=== PATIENT | male | born 1945 | race Caucasian/White ===

== ENCOUNTER 2020-06-05 12:04 | Emergency (ER) | payer MEDICARE, SELFPAY ==
[2020-06-05 12:14] VITALS: BP 142/82; PULSE 64; RESP 16; TEMP 36.7; O2SAT 97
--- NOTE | 2020-06-05 12:33 | ED.BACK ---
HPI - Back Pain/Injury General Chief Complaint: Back Pain/Injury Stated Complaint: pain in lower abdomin and back Time Seen by Provider: 06/05/20 12:30 Source: patient and RN notes reviewed Mode of arrival: ambulatory Limitations: no limitations History of Present Illness HPI Narrative: I did not fully evaluate this patient. After introducing myself patient states he was not previously aware that our facility was an [place] facility and that he would like leave and go to an Urgent Care in [place] that is associated with his PCP, who can order some outpatient back xrays for him for his back complaint. I was not able to complete in HPI. I was not able to examine this patient. He ambulated out of the building with is cane. Related Data Home Medications Medication Instructions Recorded Confirmed ilcisrjz-eyq-ox-acetaminophen tablet PO 06/05/20 lidocaine patch TOPICAL 06/05/20 Allergies Allergy/AdvReac Type Severity Reaction Status Date / Time No Known Allergies Allergy Verified 06/05/20 12:31 Course Vital Signs Vital signs: Vital Signs Temperature 98.1 F 06/05/20 12:14 Pulse Rate 64 06/05/20 12:14 Respiratory Rate 16 06/05/20 12:14 Blood Pressure 142/82 H 06/05/20 12:14 Pulse Oximetry 97 06/05/20 12:14 Temperature 98.1 F 06/05/20 12:14 Pulse Rate 64 06/05/20 12:14 Respiratory Rate 16 06/05/20 12:14 Blood Pressure 142/82 H 06/05/20 12:14 Pulse Oximetry 97 06/05/20 12:14 Discharge Plan Discharge Patient Disposition: [facility] After Seen by Prov Prescriptions: No Action btitwigx-oqk-rd-acetaminophen Tablet PO RF: 0 lidocaine 3.5 % Adhesive Patch,Medicated TOPICAL RF: 0 Follow-up/Referrals: MELISSA,MD KARINE [Primary Care Provider] - Time of Disposition: 12:30
== END 2020-06-05 12:30 | disposition left against medical advice (07) ==
PROVIDERS: Emergency Provider Nurse Practitioner; PCP Family Medicine
DX: Z53.21 Procedure and treatment not carried out due to patient leaving prior to being seen by health care provider (principal)
CPT/HCPCS: 99199; 99211; G0463